=== PATIENT | female | born 1980 | race Caucasian/White ===

== ENCOUNTER → 2022-06-28 10:02 | Outpatient (BNVA) | payer OTHER, SELFPAY | PROVIDERS: PCP Family Medicine; Visit Provider Family Medicine | DX: E11.9 Type 2 diabetes mellitus without complications (principal); J30.2 Other seasonal allergic rhinitis; M72.2 Plantar fascial fibromatosis | CPT/HCPCS: 80053; 80061; 82043; 83036; 85025 ==

== ENCOUNTER → 2022-10-25 15:11 | Outpatient (BNVA) | payer OTHER, SELFPAY | PROVIDERS: PCP Family Medicine; Visit Provider Family Medicine | DX: E11.9 Type 2 diabetes mellitus without complications (principal); E78.5 Hyperlipidemia, unspecified | CPT/HCPCS: 80053; 83036 ==

== ENCOUNTER 2023-01-23 07:02 | Outpatient (CLI) | payer OTHER, SELFPAY ==
--- NOTE | 2023-01-23 07:15 | MR_ITS ---
WS: [id number] EXAMINATION: MR foot RT wo con* [id number] ORDER DATE: 01/23/2023 7:24 AM COMPARISON: None. HISTORY: Right foot soft tissue mass CONTRAST: None. TECHNIQUE: Sagittal T1, sagittal STIR, coronal PD, coronal T2, axial T1, axial T2, and axial PD imagi ng with fat saturation technique. FINDINGS: Palpable marker on the medial aspect RIGHT foot. Lobulated lipoma deep to the palpable nseha er measuring approximately 5.9 x 1.7 cm AP by transverse. A few additional smaller adjacent satellite lipomas directly deep to the palpable marker. Distal Achilles is normal in appearance. Tiny amount of tenosynovitis along the peroneal tendon sheat h. Peroneus longus and brevis appear intact. Normal extensor and flexor compartment tendons. Normal bone marrow signal in the talus and calcaneus. Normal talonavicular articulation. Normal cuboi d. Normal cuneiforms. Base of the 5th metatarsal appears normal. Normal plantar aponeurosis. Tiny ankle effusion. Normal ATF. No other suspicious findings. MR/MR foot RT wo con* [id number] IMPRESSION: 1. Deep to the palpable marker instep RIGHT foot is a lobulated lipoma measuri ng 5.9 x 1.7 cm AP by transverse. Additional tiny satellite lipomas directly de ep to the palpable marker. 2. Small amount of tenosynovitis along the peroneal tendon sheath. 3. Normal ATF. 4. Tiny ankle effusion. 5. No other acute findings.
== END 2023-01-23 07:03 | disposition home or self-care (01) ==
LOC: RAD 07:05
PROVIDERS: PCP Family Medicine; Visit Provider Podiatrist Foot & Ankle Surgery
DX: M79.89 Other specified soft tissue disorders (principal); E78.5 Hyperlipidemia, unspecified; E11.9 Type 2 diabetes mellitus without complications
CPT/HCPCS: 73718; 80053; 80061; 83036

== ENCOUNTER → 2023-02-07 15:49 | Outpatient (BNVA) | payer OTHER, SELFPAY | PROVIDERS: PCP Family Medicine; Visit Provider Family Medicine | DX: Z01.818 Encounter for other preprocedural examination (principal) | CPT/HCPCS: 85025 ==

== ENCOUNTER 2023-02-13 08:06 | Day surgery (SDC) | payer OTHER, SELFPAY ==
[2023-02-12 12:08] VITALS: BMI 50.8
[2023-02-13] VITALS (9 sets, daily range): BP systolic 116–156; BP diastolic 71–99; PULSE 68–91; RESP 15–21; TEMP 36.1–36.6; O2SAT 95–100
[2023-02-13] MEDS: gabapentin 300 mg Capsule PO (08:28)
[2023-02-13] MEDS: sodium chloride 0.9% 1,000 ML 30 ML IV (08:43)
[2023-02-13] MEDS: acetaminophen 1,000 MG/100 ML PIGGYBACK 400 MG IV (08:44)
[2023-02-13 09:41] LABS: Glucose Point of Care 159 mg/dL (70-110)
--- NOTE | 2023-02-13 09:57 | W.PM.OPSUD ---
Surgery/Procedure H&P Update DATE OF PROCEDURE: February 13, 2023 DATE H&P PERFORMED: 01/29/23 CHANGES TO PREVIOUS DOCUMENTATION: No changes PREOP DIAGNOSIS: Right foot soft tissue mass PLANNED PROCEDURE: Operation Date: 02/13/23 09:40 Proposed Procedures p Soft tissue mass excision right foot greater than 1.5 cm subfascial CPT 83709,?D17.2(Right) - Vlad Riley DPM
[2023-02-13] MEDS: ceFAZolin 2,000 MG in sodium chloride 0.9% (plus) 50 ML 100 MG IV (10:14)
[2023-02-13] MEDS: ceFAZolin 1,000 MG in sodium chloride 0.9% (plus) 50 ML 100 MG IV (10:20)
--- NOTE | 2023-02-13 10:37 | ANES.PREANE2 ---
Pre-Anesthetic Assessment Height/Weight: Height 1.7 m Weight 147.418 kg Temp Pulse Resp BP Pulse Ox O2 Del Method 97 F L 71 18 156/97 99 Room Air 02/13/23 08:36 02/13/23 08:36 02/13/23 08:36 02/13/23 08:36 02/13/23 08:36 02/13/23 08:40 Preop Diagnosis: Right foot soft tissue mass Operation Date: 02/13/23 09:40 Proposed Procedures p Soft tissue mass excision right foot greater than 1.5 cm subfascial CPT 00836,?D17.2(Right) - Vlad Riley DPM Familial anesthetic complications: none Was Beta Zahra taken within 24 hours: N/A Was Clonidine taken within 24 hours: N/A Last intake: Intake Last Liquid Date 02/12/23 Last Liquid Time 20:00 Last Solid Date 02/12/23 Last Solid Time 19:00 Social No alcohol and No tobacco (h/o smoking) Exam alert, oriented x 3, clear to auscultation bilaterally and regular rate & rhythm Airway Submandibular: within normal limits Cervical ROM: within normal limits Mallampati: Class II Dentition: false Pulmonary Chronic Obstructive Pulmonary Disease GI Gastroesophageal Reflux Disease Metabolic Diabetes Mellitus and Morbid Obesity Anesthetic Plan ASA status: 3 Anesthesia: General Medications/Allergies Home Medications Medication Instructions Recorded Confirmed Last Taken Type fluticasone propionate 50 2 spray intranasal DAILY #16 grams 10/25/22 02/12/23 02/12/23 Rx mcg/actuation nasal spray,suspension (Flonase Allergy Relief) montelukast 10 mg tablet 10 mg PO DAILY #90 tabs 10/25/22 02/12/23 02/12/23 Rx (Singulair) pantoprazole 40 mg tablet,delayed 40 mg PO QAM #90 tabs 10/25/22 02/12/23 02/13/23 04:00 Rx release (Protonix) triamcinolone acetonide 0.1 % 1 applic topical BID #30 grams 01/02/23 02/12/23 02/12/23 Rx topical cream dulaglutide 1.5 mg/0.5 mL See Rx Instructions .Route 01/23/23 02/12/23 02/07/23 Rx subcutaneous pen injector .COMPLEX #4 mL (Trulicity) atorvastatin 40 mg tablet 40 mg PO DAILY #90 tabs 01/24/23 02/12/23 02/12/23 Rx cyclobenzaprine 10 mg tablet 10 mg PO .qhs PRN muscle relaxer 02/12/23 02/12/23 Unknown History hydrocodone 5 mg-acetaminophen 325 1 tab PO Q6H PRN pain #28 tabs 02/13/23 Unknown Rx mg tablet metformin 500 mg tablet,extended 500 mg PO BID #360 tabs 02/13/23 02/13/23 02/12/23 Rx release 24 hr Allergies Allergy/AdvReac Type Severity Reaction Status Date / Time promethazine [From Phenergan] Allergy ADR-Vomitin Verified 02/12/23 11:56 g Current Medications Generic Name Dose Route Start Last Admin Trade Name Freq PRN Reason Stop Dose Admin Sodium Chloride 1,000 mls @ 30 mls/hr 02/13/23 08:15 02/13/23 08:43 Sodium Chloride 0.9% IV 02/14/23 08:14 30 mls/hr .Q24H AMARILIS Administration Cefazolin Sodium 1,000 mg/ 50 mls @ 100 mls/hr 02/13/23 10:15 02/13/23 10:20 Sodium Chloride IV 02/13/23 10:44 100 mls/hr ONCE ONE Administration Protocol [facility] Anesthesia Medical History GERD (gastroesophageal reflux disease) Seasonal allergies Type 2 diabetes mellitus, without long-term current use of insulin Surgical History History of section, classical x 2 History of D&C History of endometrial ablation History of tubal ligation Social History Smoking and tobacco status: former smoker Alcohol intake: never Substance/Drug Use: never Female Reproductive History Date of last menstrual period: 01/28/23 Data Anesthesia Cardiac Studies: No Data to Display
--- NOTE | 2023-02-13 11:12 | PC.NURSE ---
Pt arrived to PACU, resting comfortably, O2 at 6L/min via simple mask. Pt denies any pain or nausea at this time. Dressing to right foot C/D/I, right toes p/w/d, cap refill <3 seconds, able to wiggle toes, FOB elevated.
[2023-02-13 11:25] LABS: Glucose Point of Care 125 mg/dL (70-110)
[2023-02-13] MEDS: HYDROcodone-acetaminophen 5-325 mg Tablet 1 TAB PO (12:02)
--- NOTE | 2023-02-13 16:57 | ANE.PACU2 ---
Inpatient post-anesthesia follow up: Airway intact: Yes Vital signs: Temperature 97.7 F Pulse Rate 68 Respiratory Rate 18 Blood Pressure 138/85 Pulse Oximetry 99 Oxygen Delivery Me thod Room Air Oxygen Flow Rate 6 Fraction of Inspir ed Oxygen Hydration adequate: Yes Nausea and vomiting: No Pain level: 2 Mental status: Baseline
--- NOTE | 2023-02-13 20:30 | P.OP_ITS ---
Operative Report Date of procedure: February 25, 2023 Pre-op diagnosis: Preop Diagnosis Right foot soft tissue mass Post-op diagnosis: Right foot lipoma Post-op findings: Large lipoma to plantar aspect of right foot measuring 6.0 x 3.0 x 3.0 cm Procedure done: Right foot soft tissue mass excision CPT 03501 Specimens removed/disposition: Right foot soft tissue mass sent to pathology Pathology: Right foot soft tissue mass Surgeon: Dr. Vlad Riley, D.P.M. Estimated blood loss: Less than 10 cc Complications: None Findings: See above Procedure: Patient is a 42-year-old female that has a history of right foot soft tissue mass. The patient has had the aforementioned chief complaint for some time. Conservative treatment measures have been attempted and the patient has opted for surgical intervention at this time. A lengthy discussion regarding the procedure, including risks and complications has been had with the patient and is noted in the recent clinic note. Written and verbal consent have been obtained. All patient questions have been answered to the patient?s satisfaction . No written or verbal guarantees have been given or implied. The patient has been NPO since midnight. The history has been reviewed and the history and physical is current. The signed consent was confirmed and placed in the patient chart. Patient imaging has been reviewed and is consistent with the diagnosis. Under mild sedation, the patient was brought into the operating room and placed on the table in the supine position. IV antibiotics were given by the anesthesia team as preoperative surgical prophylaxis. General sedation was then performed by the anesthesiateam. A pneumatic tourniquet was then placed about the right ankle. The operative extremity was then prepped and draped in the usual fashion. The extremity was then elevated and exsanguinated before the tourniquet was inflated to 250 mmHg. After inflation, the following procedure was then performed. Attention was directed to the medial longitudinal arch of the right foot where there was a notable soft tissue mass. A sick centimeter incision was made over the soft tissue mass using a #15 blade. Dissection was carried down through subcutaneous and superficial fascia to the level of the soft tissue mass. Soft tissue mass was visualized and noted to be yellow and lobulated and well- defined. Careful blunt dissection was carried out circumferentially around the soft tissue mass. It was then freed from underlying tissue and passed from the operative field. Measurements of the mass were taken and it was measured to be 6.0 x 3.0 x 3.0 cm, yellow in discoloration with the appearance of a lipoma. The soft tissue of the foot was examined and no remaining soft tissue mass was visualized. The tourniquet was let down and good hyperemic response was noted to all digits of the right foot. Hemostasis was noted to be achieved. Attention was then directed to closure. Deep tissue was closed with 2-0 Vicryl followed by subcuticular closure 3-0 Vicryl and skin closed with 3-0 nylon in horizontal mattress fashion. Incision site was dressed with Xeroform, 4 x 4 gauze, Kerlix and Coban. The patient tolerated the procedure and anesthesia well and without complication. The patient was transported from the operating room to the recovery room with vital signs stable and vascular status intact to all digits of the right foot. The patient was given both written and verbal instructions to remain bearing as tolerated to the operative extremity, to keep dressings/splint clean, dry and intact and to take pain medication as directed. The patient will follow-up in the outpatient setting at their scheduled appointment. The patient was discharged with my personal number and was instructed to call if any questions or issues should arise. They were discharged home once anesthesia criteria was met.
== END 2023-02-13 12:20 | disposition home or self-care (01) ==
PROVIDERS: PCP Family Medicine; Visit Provider Podiatrist Foot & Ankle Surgery
PROC: (CPT 28041; principal; 2023-02-13 09:30)
DX: D17.23 Benign lipomatous neoplasm of skin and subcutaneous tissue of right leg (principal); J44.9 Chronic obstructive pulmonary disease, unspecified; K21.9 Gastro-esophageal reflux disease without esophagitis; E11.9 Type 2 diabetes mellitus without complications; E66.01 Morbid (severe) obesity due to excess calories; Z68.43 Body mass index [BMI] 50.0-59.9, adult; Z79.85 Long-term (current) use of injectable non-insulin antidiabetic drugs; Z79.891 Long term (current) use of opiate analgesic; Z87.891 Personal history of nicotine dependence
CPT/HCPCS: 28041; 36416; 81025; 82962; 88307; C9290; J0131; J0330; J0690; J1100; J2250; J2405; J2704; J3010; J3490; J7030

== ENCOUNTER → 2023-07-24 10:58 | Outpatient (BNVA) | payer OTHER, SELFPAY | PROVIDERS: PCP Family Medicine; Visit Provider Family Medicine | DX: E11.9 Type 2 diabetes mellitus without complications (principal); M25.532 Pain in left wrist; K21.9 Gastro-esophageal reflux disease without esophagitis; J30.2 Other seasonal allergic rhinitis; E78.5 Hyperlipidemia, unspecified; Z12.31 Encounter for screening mammogram for malignant neoplasm of breast; J30.89 Other allergic rhinitis | CPT/HCPCS: 80053; 82043; 83036 ==

== ENCOUNTER 2023-09-24 07:45 | Outpatient (CLI) | payer OTHER, SELFPAY ==
--- NOTE | 2023-09-24 07:50 | MM_ITS ---
WS: [id number] Bilateral screening 3D tomosynthesis digital mammogram, 09/24/2023 Clinical Data: screening mammogram Comparison: None. Findings: The breast parenchymal pattern shows fibroglandular tissue. No spiculated masses or clustered calcifi cations are seen. There are no secondary signs of carcinoma. Impression: 1. Negative bilateral mammogram with no prior exam for review. 2. Recommend annual screening mammograms. MM/[place] [id number] BIRADS: 1-Negative FOLLOW UP: 1 Year Follow-up The CAD credit rating checker was used.
== END 2023-09-24 07:46 | disposition home or self-care (01) ==
LOC: RAD 07:45
PROVIDERS: PCP Family Medicine; Visit Provider Family Medicine
DX: Z12.31 Encounter for screening mammogram for malignant neoplasm of breast (principal)
CPT/HCPCS: 77063; 77067

== ENCOUNTER → 2024-02-02 08:19 | Outpatient (BNVA) | payer OTHER, SELFPAY | PROVIDERS: PCP Family Medicine; Visit Provider Family Medicine | DX: E11.9 Type 2 diabetes mellitus without complications (principal); Z13.6 Encounter for screening for cardiovascular disorders; E78.5 Hyperlipidemia, unspecified; K21.9 Gastro-esophageal reflux disease without esophagitis; J30.2 Other seasonal allergic rhinitis | CPT/HCPCS: 80053; 80061; 83036; 85025 ==

== ENCOUNTER 2024-06-25 10:31 | Outpatient (RCR) | payer OTHER, SELFPAY | END 2024-07-22 23:59 | disposition home or self-care (01) | LOC: SPT 10:31 | PROVIDERS: Visit Provider Family Medicine | DX: S46.012D Strain of muscle(s) and tendon(s) of the rotator cuff of left shoulder, subsequent encounter (principal); X58.XXXD Exposure to other specified factors, subsequent encounter | CPT/HCPCS: 97110; 97161 ==

== ENCOUNTER 2024-07-23 06:00 | Outpatient (RCR) | payer OTHER, SELFPAY | END 2024-08-21 23:59 | disposition home or self-care (01) | LOC: SPT 06:00 | PROVIDERS: Visit Provider Family Medicine | DX: S46.012D Strain of muscle(s) and tendon(s) of the rotator cuff of left shoulder, subsequent encounter (principal); X58.XXXD Exposure to other specified factors, subsequent encounter | CPT/HCPCS: 97110 ==

== ENCOUNTER 2024-08-22 06:00 | Outpatient (RCR) | payer OTHER, SELFPAY | END 2024-09-21 23:59 | disposition home or self-care (01) | LOC: SPT 06:00 | PROVIDERS: Visit Provider Family Medicine | DX: S46.012D Strain of muscle(s) and tendon(s) of the rotator cuff of left shoulder, subsequent encounter (principal); X58.XXXD Exposure to other specified factors, subsequent encounter | CPT/HCPCS: 97032; 97110; 97140 ==

== ENCOUNTER 2024-09-22 06:00 | Outpatient (RCR) | payer OTHER, SELFPAY | END 2024-09-23 23:26 | disposition home or self-care (01) | LOC: SPT 06:00 | PROVIDERS: Visit Provider Family Medicine | DX: S46.012D Strain of muscle(s) and tendon(s) of the rotator cuff of left shoulder, subsequent encounter (principal); X58.XXXD Exposure to other specified factors, subsequent encounter | CPT/HCPCS: 97110 ==

== ENCOUNTER → 2025-02-24 09:34 | Outpatient (BNVA) | payer OTHER, SELFPAY | PROVIDERS: Visit Provider Orthopaedic Surgery | DX: M25.512 Pain in left shoulder (principal); G89.29 Other chronic pain | CPT/HCPCS: 73030 ==

== ENCOUNTER 2025-03-31 06:17 | Outpatient (CLI) | payer OTHER, SELFPAY ==
--- NOTE | 2025-03-31 06:30 | MR_ITS ---
WS: [id number] MRI LEFT SHOULDER NONCONTRAST TECHNIQUE: Sagittal T2, coronal T1, T2 and proton density imaging. Axial gradient PDE imaging. CLINICAL INFORMATION: left shoulder pain COMPARISON: None. FINDINGS: Some images degraded by motion. Mild degenerative arthritis AC joint with mild downsloping acromion. Subacromial spurring with slight impingement distal supraspinatus. Small amount of fluid and edema at the AC joint. Trace subacromial subdeltoid fluid. Mild chronic thinning of the supraspinatus with mild tendinopathy. Normal infraspinatus. Normal teres minor. Normal teres minor. Normal subscapularis tendon. Biceps tendon is present within the bicipital groove. Enlarged intra- articular biceps tendon with T2 signal normality compatible with tendinopathy. Normal bone marrow signal in the humerus and glenoid. Labrum appears grossly normal. Biceps labral anchor appears intact. MR/MR shoulder LT wo con* [id number] IMPRESSION: 1. Mild degenerative arthritis AC joint with subacromial spurring and slight i mpingement distal supraspinatus. 2. Tendinopathy supraspinatus with mild chronic thinning. 3. Rotator cuff is otherwise normal. 4. Tendinopathy intra-articular biceps tendon. 5. Biceps tendon appears intact within the bicipital groove.
== END 2025-03-31 06:18 | disposition home or self-care (01) ==
LOC: RAD 06:18
PROVIDERS: PCP Nurse Practitioner Family; Visit Provider Orthopaedic Surgery
DX: M19.012 Primary osteoarthritis, left shoulder (principal); M75.42 Impingement syndrome of left shoulder; M67.814 Other specified disorders of tendon, left shoulder
CPT/HCPCS: 73221

== ENCOUNTER 2025-07-06 10:25 | Day surgery (SDC) | payer OTHER, SELFPAY ==
[2025-07-06] VITALS (12 sets, daily range): BP systolic 102–139; BP diastolic 34–88; PULSE 63–93; RESP 16–18; TEMP 36.2–36.5; O2SAT 93–99; BMI 49.3
--- NOTE | 2025-07-06 11:50 | ANES.PREANE2 ---
Pre-Anesthetic Assessment Height/Weight: Height 1.7 m Weight 142.882 kg Temp Pulse Resp BP Pulse Ox O2 Del Method 97.7 F 63 18 119/84 99 Room Air 07/06/25 10:55 07/06/25 10:55 07/06/25 10:55 07/06/25 10:55 07/06/25 10:55 07/06/25 11:15 Operation Date: 07/06/25 12:00 Proposed Procedures p LEFT Shoulder Arthroscopy(Left) - Jordi Chirinos MD s LEFT Shoulder Open Rotator Cuff Repair(Left) - Jordi Chirinos MD s Acromioplasty(Left) - Jordi Chirinos MD Familial anesthetic complications: None Was Beta Zahra taken within 24 hours: N/A Was Clonidine taken within 24 hours: N/A Last intake: Intake Last Liquid Date 07/05/25 Last Liquid Time 20:00 Last Solid Date 07/05/25 Last Solid Time 20:00 Social No alcohol and No tobacco Exam alert, oriented x 3, clear to auscultation bilaterally and regular rate & rhythm Airway Mallampati: Class IV Dentition: other (none) GI Gastroesophageal Reflux Disease Metabolic Diabetes Mellitus and Morbid Obesity Anesthetic Plan ASA status: 3 Anesthesia: General and Regional (specify below) Risk of > 500 ml blood loss (7ml/kg in children): No Medications/Allergies Home Medications ?Medication ?Instructions ?Recorded ?Confirmed ?Last Taken ?Type albuterol sulfate 90 mcg/actuation 2 inh inhalation QID PRN shortness 11/28/23 07/05/25 Unknown Rx aerosol inhaler of breath or wheezing #6.7 grams atorvastatin 40 mg tablet 40 mg PO DAILY #90 tabs 02/02/24 07/05/25 07/05/25 Rx metformin 500 mg tablet,extended 1,000 mg (2 x 500 mg) PO BID #360 02/03/24 07/05/25 07/05/25 Rx release 24 hr tabs cyclobenzaprine 5 mg tablet 5 mg PO .qhs PRN muscle relaxer 08/18/24 07/05/25 Unknown Rx #30 tabs escitalopram oxalate 20 mg tablet 20 mg PO DAILY 07/05/25 07/05/25 07/05/25 History (Lexapro) fluticasone propionate 50 2 spray intranasal DAILY 07/05/25 07/05/25 07/05/25 History mcg/actuation nasal spray,suspension montelukast 10 mg tablet 10 mg PO DAILY 07/05/25 07/05/25 07/05/25 History pantoprazole 40 mg tablet,delayed 40 mg PO DAILY 07/05/25 07/05/25 07/05/25 History release tirzepatide 7.5 mg/0.5 mL 7.5 mg SUBCUT Q7D 07/05/25 07/05/25 06/29/25 History subcutaneous pen injector ([place]) Allergies Allergy/AdvReac Type Severity Reaction Status Date / Time promethazine (From Phenergan) Allergy ADR-Vomitin Verified 07/05/25 13:18 g [facility] Anesthesia Medical History GERD (gastroesophageal reflux disease) Seasonal allergies Type 2 diabetes mellitus, without long-term current use of insulin Surgical History History of endometrial ablation History of tubal ligation History of D&C History of section, classical x 2 Social History Smoking and tobacco/nicotine status: never used tobacco/nicotine Alcohol intake: never Substance/Drug Use: never Female Reproductive History Date of last menstrual period: 06/30/25 Anesthesia Procedures Nerve Block Nerve Block 1: Main Anesthesia: general anesthesia Time Out Performed: Yes Consent: requested by attending/covering physician, from patient, from other, risks and benefits reviewed and patient agrees to proceed Nerve block location: interscalene (L) Anesthesia monitors applied: pulse oximetry, EKG, BP cuff and oxygen Nerve block position: semi sitting Anesthetic Used: ropivicaine 0.5% (20 ml) and with decadron (4 mg) Ultrasound used to: recognize landmarks, visualize and ID brachial plexus, in supraclavicular region and visualize and ID interscalene groove Nerve Stimulator Used?: No Interscalene/Femoral BLK: 2 stimuplex 22 g needle used for position and inplane approach, visualize local anesthetic spread and no vascular puncture identified Injection: neg aspiration of heme Patient Tolerated Procedure: well Complications: none
--- NOTE | 2025-07-06 11:56 | W.PM.OPSUD ---
Surgery/Procedure H&P Update DATE OF PROCEDURE: July 06, 2025 DATE H&P PERFORMED: 06/14/25 H&P UPDATE INFORMATION: I have reviewed H&P completed within last 30 days, I have examined patient prior to procedure and No changes to prior documentation CHANGES TO PREVIOUS DOCUMENTATION: There is been no medical changes since the original H&P. Patient's lungs are clear today by auscultation Heart is regular rate and rhythm normal sounds No other positive findings PREOP DIAGNOSIS: Internal derangement left shoulder PLANNED PROCEDURE: Operation Date: 07/06/25 12:00 Proposed Procedures p LEFT Shoulder Arthroscopy(Left) - Jordi Chirinos MD s LEFT Shoulder Open Rotator Cuff Repair(Left) - Jordi Chirinos MD s Acromioplasty(Left) - Jordi Chirinos MD
[2025-07-06] MEDS: ceFAZolin 3,000 MG in sodium chloride 0.9% (plus) 100 ML 200 MG IV (12:27)
--- NOTE | 2025-07-06 13:20 | PM.OP ---
Operative Report Date of procedure: July 06, 2025 Surgeon: Jordi Chirinos MD Procedure: Preoperative diagnosis: Internal derangement left shoulder Postoperative diagnosis: Degenerative changes anterior labrum, rotator cuff tear, acromial impingement, gross bursitis, Procedure: Diagnostic left shoulder arthroscopy with debridement of labrum and rotator cuff. Mini open acromioplasty bursectomy and rotator cuff repair Surgeon: Jordi Chirinos MD Certified Surgical Technician: VALERI Ramirez's assistance was necessary for patient positioning, assistance during the procedure, wound closure and placement of sling and abduction pillow Anesthesia: General With preoperative scalene block EBL: Minimal Indications: Karuna is a 45Y female who presented myself earlier this year with complaints of chronic left shoulder pain. She originally injured her shoulder at work and was seen by [employer]. providers who obtained an MRI earlier this year indicating that she had nothing wrong with her shoulder. Please send her to physical therapy, I have had her using [id number] NSAIDs, and eventually a corticosteroid injections. None of these help with any of her pain problems difficulties. Eventually she was seen by myself and it was felt that she had a rotator cuff injury at this time. Significant impingement was also identified. And reviewed the MRI from September of this year it did appear that there was tearing of the supraspinatus tendon may be not through and through but was thinning quite a bit. Therefore at this time having failed all conservative measures patient was offered a diagnostic shoulder arthroscopy with all indicated procedures. All risk benefits treatment alternatives were discussed with her and she is agreeable to this at this time. Procedure: After obtaining her consent patient had preoperative scalene block administered in preop holding area. Patient was then taken to the operating room placed the op table supine position general anesthetic administered. Once [place] was achieved patient was placed up in the beachchair position and secured to the bed appropriately. Left arm and shoulder were prepped and draped usual fashion. After surgical timeout standard posterior portals made #11 blade to the posterior aspect the glenohumeral joint line and camera cannulas placed within. Anterior working portal was also placed as inferior to the distal clavicle. Probing of the anterior labrum demonstrated is intact however there is some degenerative changes on the superficial lead and therefore this debrided with mechanical shaver down to stable cartilaginous base. Biceps tendon insertion was identified and demonstrated no damage or injury. Biceps tendon was intact all the way through to the biceps hiatus. There is thinning of the rotator cuff the supraspinatus region and could almost see through this layer from internally this is debrided somewhat with mechanical shaver. At this time arthroscopy was abandoned and a mini open procedure was started. Longitudinal incision was made off the anterior lateral aspect of the acromion. Sharp dissecting down down to subcutaneous tissues electrocautery used for hemostasis. Later cautery was used to remove the deltoid from the anterior acromion. This demonstrated a large spur extending forward. A small microsagittal saw was then used to do an acromioplasty with decompression. Cut was removed en bloc. Bursa was removed from this area finding to be very thickened and adhering to multiple surfaces. Once within a thinned area of the supraspinatus at the junction just posterior to the bicipital groove was identified. This area is freshened with a #15 blade. 2 juggernaut's measuring 2.9 mm were placed through drill holes equidistant from each other and the tear area. Each of these anchors had double sutures. Horizontal mattress suturing was used to repair the rotator cuff back down to its original insertion point. Shoulders with range of motion found to be stable with no impingement further. Deltoids reapproximated 0 Vicryl [id number] sutures. Subcutaneously reapproximated 0 Vicryl interrupted sutures. Skin was closed with skin dilshad. Wounds are cleaned and dried dressed with Xeroform gauze, sterile gauze dressing, ABD and adhesive tape. Patient was awakened transferred to cover room in stable condition after being placed in abduction pillow sling l
--- NOTE | 2025-07-06 15:20 | ANE.PACU2 ---
Inpatient post-anesthesia follow up: Airway intact: Yes Vital signs: Temperature 97.1 F Pulse Rate 77 Respiratory Rate 18 Blood Pressure 102/76 Pulse Oximetry 96 Oxygen Delivery Me thod Room Air Oxygen Flow Rate Fraction of Inspir ed Oxygen Hydration adequate: Yes Nausea and vomiting: No Pain level: 1 Mental status: Baseline
== END 2025-07-06 15:20 | disposition home or self-care (01) ==
PROVIDERS: PCP Nurse Practitioner Family; Visit Provider Orthopaedic Surgery
PROC: (CPT 29805; principal; 2025-07-06 12:00)
PROC: (CPT 23412; 2025-07-06 12:00)
PROC: (CPT 23130; 2025-07-06 12:00)
DX: M24.812 Other specific joint derangements of left shoulder, not elsewhere classified (principal); M75.42 Impingement syndrome of left shoulder; M75.102 Unspecified rotator cuff tear or rupture of left shoulder, not specified as traumatic; M75.52 Bursitis of left shoulder; K21.9 Gastro-esophageal reflux disease without esophagitis; E11.9 Type 2 diabetes mellitus without complications; E66.01 Morbid (severe) obesity due to excess calories; Z68.42 Body mass index [BMI] 45.0-49.9, adult; Z79.84 Long term (current) use of oral hypoglycemic drugs
CPT/HCPCS: 23412; 23130; 36416; 82962; C1713; J0690; J1100; J2250; J2405; J2704; J2795; J3010; J3490; J7030; J9999

== ENCOUNTER 2025-08-22 05:00 | Outpatient (RCR) | payer OTHER, SELFPAY | END 2025-09-21 23:59 | disposition home or self-care (01) | LOC: SPT 05:00 | PROVIDERS: Visit Provider Orthopaedic Surgery | DX: Z47.89 Encounter for other orthopedic aftercare (principal) | CPT/HCPCS: 97110; 97161 ==